=== PATIENT | male | born 1955 | race Caucasian/White ===

== ENCOUNTER 2021-02-09 12:09 | Outpatient (REF) | payer OTHER, SELFPAY ==
--- NOTE | ~2021-02-09 | XR_ITS ---
EXAMINATION: KNEE X-RAY CLINICAL INFORMATION: Pain COMPARISON: None TECHNIQUE: Standing AP view of both knees and lateral and sunrise view of the left knee FINDINGS: Left: Bone alignment is normal. No fracture or dislocation is seen. There is medial femoral tibial joint space narrowing. There is a moderate joint effusion. There is evidence of atherosclerotic disease. Standing AP view of the right knee demonstrates medial femoral tibial joint space narrowing. XR/XR knee standing BI IMPRESSION: Left knee: Medial femoral tibial joint space narrowing and joint effusion.
--- NOTE | ~2021-02-09 | XR_ITS ---
EXAMINATION: KNEE X-RAY CLINICAL INFORMATION: Pain COMPARISON: None TECHNIQUE: Standing AP view of both knees and lateral and sunrise view of the left knee FINDINGS: Left: Bone alignment is normal. No fracture or dislocation is seen. There is medial femoral tibial joint space narrowing. There is a moderate joint effusion. There is evidence of atherosclerotic disease. Standing AP view of the right knee demonstrates medial femoral tibial joint space narrowing. XR/XR knee LT 2V IMPRESSION: Left knee: Medial femoral tibial joint space narrowing and joint effusion.
== END 2021-02-09 12:10 | disposition home or self-care (01) ==
LOC: HO.HOSX 12:09
PROVIDERS: Visit Provider Orthopaedic Surgery
DX: M17.12 Unilateral primary osteoarthritis, left knee (principal)
CPT/HCPCS: 20610; 73560; 73565; J1100

== ENCOUNTER 2022-08-23 11:00 | Outpatient (REF) | payer OTHER, SELFPAY ==
--- NOTE | ~2022-08-23 | MR_ITS ---
EXAMINATION: MR KNEE WITHOUT CONTRAST, LEFT CLINICAL INFORMATION: Left knee pain. Internal derangement. Prior surgery. COMPARISON: Left knee radiographs dated 02/19/2021. TECHNIQUE: MRI of the knee without contrast was performed using routine sequences on a high-field scanner. FINDINGS: MENISCI: Medial Meniscus: Attenuation/near complete absence of the meniscal body with attenuation extending to the inner margin and tibial articular surface of the posterior horn and root, consistent with prior meniscectomy. Correlate with surgical history. Lateral Meniscus: Oblique, nondisplaced inner margin tear of the meniscal body with extension to the tibial surface. LIGAMENTS: Cruciate: Intact Collateral: Intact EXTENSOR MECHANISM: Intact ARTICULAR CARTILAGE/BONE: Patellofemoral Compartment: Minimal patellar median ridge articular cartilage signal heterogeneity. Tiny marginal osteophytes. Medial Compartment: Full-thickness articular cartilage loss at the anteromedial aspect of the medial tibial plateau measuring approximately 1.4 x 1.3 cm (AP by ML) to see with underlying marrow edema/subchondral cystic change. Posterior weightbearing medial femoral condyle articular cartilage thinning with areas of full-thickness loss and underlying subchondral cystic change/marrow edema. Marginal osteophytes. Lateral Compartment: Mild articular cartilage signal heterogeneity with tiny marginal osteophytes. Within the posterior aspect of the lateral femoral condyle there is a focus of heterogeneously isointense T1 and hyperintense T2 signal measuring up to 1.2 cm. There are areas of interspersed normal marrow signal. 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 No edema or acute osseous abnormality. JOINT FLUID AND BURSAE: Small joint effusion and trace Haynes's cyst. MR/MR knee LT wo con IMPRESSION: 1. Attenuation/near complete absence of the medial meniscal body with attenuation extending to the inner margin and tibial articular surface of the posterior horn and root, consistent with prior meniscectomy. Correlate with surgical history. 2. Oblique, nondisplaced inner margin tear of the lateral meniscal body with extension to the tibial surface. 3. Moderate medial as well as mild patellofemoral and lateral compartment osteoarthritis. Small joint effusion and trace Haynes's cyst.
== END 2022-08-23 11:01 | disposition home or self-care (01) ==
LOC: HO.MRI 11:00
PROVIDERS: Visit Provider Orthopaedic Surgery
DX: M23.92 Unspecified internal derangement of left knee (principal)
CPT/HCPCS: 73721

== ENCOUNTER → 2022-11-15 14:29 | Outpatient (BNVA) | payer OTHER, SELFPAY | PROVIDERS: Visit Provider Orthopaedic Surgery | DX: Z13.89 Encounter for screening for other disorder (principal) ==

== ENCOUNTER 2025-08-19 11:21 | Outpatient (REF) | payer MEDICARE, OTHER, SELFPAY | END 2025-08-19 11:22 | disposition home or self-care (01) | LOC: HO.HOSX 11:21 | PROVIDERS: Visit Provider Orthopaedic Surgery | DX: M17.0 Bilateral primary osteoarthritis of knee (principal) | CPT/HCPCS: 20610; 99212; J0665; J1100; J2003 ==

== ENCOUNTER 2025-08-19 11:21 | Outpatient (AMB) | payer MEDICARE, OTHER, SELFPAY ==
[2025-08-19 11:24] VITALS: BMI 29.5
--- NOTE | 2025-08-19 11:24 | MHC.OFFVIS ---
Vital Signs 08/19/25 11:24 Height 5 ft 9 in Weight 200 lb BMI 29.5 Intake Visit Reasons: OV - Left Knee OA - ? Injection Intake Note: Chris is a 69 year old male who presents today for a follow up of his Bilateral Knee OA. Left > Right. He has pain with daily activity, worse with using stairs or prolonged ambulation. He is able to engage in most daily activity without difficulty, though he is limited in his ability to run. We discussed that his symptoms do not limit him enough to warrant surgical intervention. Hx of Left Knee injection in 2020 which was helpful. He reports that the injection in the left knee was helpful. He also had an injection in the right knee which was also helpful. When he booked his appointment he was having significant pain of both knees, and the pain does increase intermittently. He is interested in having injections in both of his knees today Allergies grass pollen Allergy (Verified 02/09/21 14:13) itching HPI HPI OV - Left Knee OA - ? Injection: Details: Chris is a 69 year old male who presents today for a follow up of his Bilateral Knee OA. Left > Right. He has pain with daily activity, worse with using stairs or prolonged ambulation. He is able to engage in most daily activity without difficulty, though he is limited in his ability to run. We discussed that his symptoms do not limit him enough to warrant surgical intervention. Hx of Left Knee injection in 2020 which was helpful. He reports that the injection in the left knee was helpful. He also had an injection in the right knee which was also helpful. When he booked his appointment he was having significant pain of both knees, and the pain does increase intermittently. He is interested in having injections in both of his knees today HPI Comments Details: Interval History The patient is a 69-year-old male presenting with follow-up for left knee osteoarthritis management and evaluation for possible injection therapy. The patient reports that the previous injection provided relief for a period, but the pain has since returned. He describes the left knee as having significant arthritis and notes that the pain worsens at the end of the day, particularly after walking or using the elliptical machine. He is able to walk his dog twice daily for about a mile and a half and uses the elliptical for four miles daily, although he avoids the treadmill due to discomfort. The patient mentions that a deep tissue massage on his legs provided temporary relief, although he acknowledges it does not address the underlying arthritis. He is preparing to resume field work, which involves significant physical activity, and expresses concern about managing pain during this period. The patient denies any history of diabetes. Results [facility] Medical History Meniscus, medial, derangement Social History Current occupational status: employed Current occupation: right handed Physical Exam Exam Exam: Physical Exam Vital Signs: BMI result Body Mass Index 29.5 Office Procedures Joint Inj/Aspir; Non-Pain Clin Joint Injection/Drain Details: Injected 1 mL of Decadron and 3 mL 1% lidocaine and 3 mL of 0.25% Marcaine. Site was prepped using aseptic technique. Patient tolerated the procedure well. Shoulders, Hips, Knees, Knee Large Joint Injection [id number]: Bilateral Knee Coding Procedure code (CPT) selection complete Assessment & Plan Assessment & Plan (1) Bilateral primary osteoarthritis of knee: Code(s): M17.0 - Bilateral primary osteoarthritis of knee Category: Medical Plan Plan 1. Left Knee Osteoarthritis The plan is to proceed with an injection for the left knee osteoarthritis to provide symptomatic relief, as the patient reported benefit from previous injections. The patient is advised to continue with cardiovascular exercises such as walking and using the elliptical, while avoiding activities that exacerbate knee pain, like using the treadmill. Patient education on the importance of maintaining flexibility and strength through stretching exercises was provided. Follow-up is recommended to assess the response to the injection and adjust the management plan as needed. 2. Bilateral Knee Pain The patient is encouraged to continue with non-pharmacologic measures such as massage therapy, which he found beneficial for temporary relief of bilateral knee pain. The patient is advised to monitor for any significant changes in pain or function and to report these during follow-up visits. Discussion Notes During the visit, the patient and clinician discussed the management of left knee osteoarthritis, including the option of injection therapy, which the patient agreed to proceed with given the previous positive response. The patient expressed concerns about managing knee pain during upcoming field work, and the clinician provided reassurance and advice on maintaining activity levels while avoiding exacerbating activities. The benefits of non-pharmacologic interventions, such as massage therapy, were acknowledged, and the patient was encouraged to continue these as part of his pain management strategy. Orders: Orders XR knee LT 3V Today M25.562 - Pain in left knee Coding Level of Care Code Est Pt Level 3 (51580) Diagnoses Bilateral primary osteoarthritis of knee M17.0 CPT Codes Shoulders, Hips, Knees, - Knee Large Joint Injection : Bilateral Knee ([id number])
== END 2025-08-19 13:21 | disposition home or self-care (01) ==
LOC: HO.HOS 11:22
PROVIDERS: Visit Provider Orthopaedic Surgery
DX: M17.0 Bilateral primary osteoarthritis of knee (principal)
CPT/HCPCS: 20610; 99213